=== PATIENT | male | born 1970 | race Caucasian/White ===

== ENCOUNTER 2017-04-07 22:51 | Emergency (ER) | payer OTHER ==
[~2017-04-07] VITALS: Ht 172.7 cm; Wt 70.5 kg
[~2017-04-07 22:51] MED LIST: CARV12.5 PO; CITA40TA13 PO; CLON0.1T14 PO; KLO5T PO; LISI-610 PO; METH40TA PO
[2017-04-07 23:00] VITALS: BP 129/85; PULSE 108; RESP 20; O2SAT 94
--- NOTE | 2017-04-07 23:47 | ED.REPORT ---
HPI-General Illness Date of Service Apr 07, 2017 ED Provider: Jeff Cuello MD A 47 year old male with a history of uncontrolled hypertension, COPD, alcoholism (in recovery) and IV drug abuse (in recovery) presents to the ED with SOB that began 5 days ago. Patient also reports experiencing recent right- sided chest pain, a productive cough with green sputum, and a subjective fever. He is currently expressing concern for pneumonia. His pain and discomfort have been persistent since onset and became progressively worse last night. His current symptoms feel similar to his previous episodes of pneumonia. The pain in his chest is solely associated with his cough and dyspnea. He denies any dysuria, hematuria, diarrhea, constipation, nausea, vomiting, visual changes, rash, neck stiffness or abdominal pain. Nursing Notes Stated Complaint: SHORT OF BREATH Chief Complaint: Respiratory Complaints Nursing Notes Reviewed: Yes Allergies: Coded Allergies: droperidol (Verified Allergy, Severe, 12/16/14) Scheduled Carvedilol (Coreg) 12.5 Mg Tablet 12.5 MG PO BID Citalopram (Citalopram) 40 Mg Tablet 40 MG PO DAILY Clonidine (Catapres) 0.1 Mg Tablet 0.1 MG PO HS Lisinopril (Zestril) 10 Mg Tablet 10 MG PO Q24H Methadone HCl (Methadose) 40 Mg Tablet.issac 74 MG PO DAILY at 5am Scheduled PRN Clonazepam (Clonazepam) 0.5 Mg Tab 0.5 MG PO BID PRN PRN For Anxiety General Time Seen by MD: 23:10 Chief Complaint Other (SOB) Hx Obtained From: Patient Arrived By: Walk-in Sudden in Onset?: No Onset Occurred: 5 days ago Symptom Duration: Since onset Location: : Chest Quality: Painful Radiation: : Does not radiate Severity: Current: Mild Severity: Maximum: Moderate Associated with: Reports: Chest pain, Congestion, Cough Pertinent Negative: Pt denies other symptoms Recent Healthcare: No recent doctor visit, No recent hospitalization Similar Sx Previous: Yes Past Medical History Past Medical History Notes: PCP: Dr. Thacker Past Medical History 1. Depression. 2. PTSD. 3. Bipolar disorder. 4. Social anxiety. 5. IV drug abuse with methamphetamine being treated with on chronic methadone through the methadone clinic 6. Bronchitis 7. Sleep apnea 8. Alcohol dependence 9. Seizure disorder -- per pt Reports: COPD, Hypertension Past Surgical History Reports: Appendectomy Family History father of MD at 41 Smoking History Current Every Day Smoker Social History Alcohol Use: In recovery Drug Use: In recovery Other Social History: Local resident Ambulatory Status Independent Review of Systems Full Review of Systems Constitutional: Reports: Fever (subjective fever) Eyes: Denies: Blurred bilateral Ears / Nose / Throat: Reports: Nasal congestion Respiratory: Reports: Prod cough, green, Shortness of breath Cardiovascular: Reports: Chest pain (right sided) GI: Denies: Abdominal pain, Constipation, Diarrhea, Nausea, Vomiting Male: Denies Dysuria Musculoskeletal: Denies: Neck pain Skin: Denies Rash Neurologic: Denies: Vision change Complete sys rev & neg: except as marked. Physical Exam Nursing note and vitals reviewed. Constitutional: Well-developed, well-nourished. Not diaphoretic. Head: Normocephalic and atraumatic. Mouth/Throat: Oropharynx is clear and moist. No oropharyngeal exudate. Eyes: EOM are normal. Pupils are equal, round, and reactive to light. Neck: Supple, no tracheal deviation. Cardiovascular: Mildly tachycardic, regular rhythm. Equal and intact distal pulses throughout. Pulmonary/Chest: Coarse rhonchi at the right base. No respiratory distress. Abdominal: Soft. No distension. There is no tenderness, rebound, or guarding. Musculoskeletal: Range of motion grossly intact, moving all extremities. Neurological: AOx3. Grossly nonfocal exam. Strength and sensation intact and equal to bilateral upper and lower extremities. Skin: Warm and dry, no rashes or pallor appreciated. Psychiatric: Appropriate mood and affect. Behavior appears normal. Vital Signs Vital Signs Date Time Temp Pulse Resp B/P Pulse Ox O2 Delivery O2 Flow Rate FiO2 04/08/17 00:18 37.0 116 20 112/79 94 Room Air 04/07/17 23:00 37.0 108 20 129/85 94 Room Air Initial VS: Reviewed Interpretation & Diagnostics X-Ray Chest Interpretation Chest Xray Interpretation: Chest X-ray Consolidation at right lower lobe consistent with pneumonia. Interpretation / Wet Read by: Wet read ED physician Re-Eval/Medical Decision Med Decision/Clinical Course In summary, 47-year-old male with a complex past medical history including COPD , recurrent pneumonia, IV drug abuse presenting to the ED for evaluation of right-sided chest pain and cough with associated shortness of breath that he describes as similar to previous episodes of pneumonia. Differential also includes PE, ACS, pneumothorax, COPD exacerbation, etc. Upon my evaluation of the patient, he is mildly tachycardic, however afebrile and nontoxic appearing. Chest x-ray demonstrates a right lower lobe consolidation consistent with pneumonia. He has not been hospitalized recently, however given his history, he is at higher risk for complications. I discussed that while I agree that his pneumonia is likely responsible for his symptoms, his tachycardia, complex past medical history, and other alternative diagnoses including those listed above require further evaluation here in the emergency department, including an EKG and blood work. The patient adamantly refuses this. I informed him that we could be missing something more serious, and his pneumonia may also progress and become more serious given his comorbidities, but he insists that he is aware of this risk and would still like to be discharged home with antibiotics. I am also concerned given his family history of cardiac disease. Upon reassessment, patient is still mildly tachycardic, though appears anxious and wants to leave. He is refusing any further care at this time. Given this, plan discharge home with very careful return precautions, close PCP follow-up in the next several days. I instructed him to return to the ED immediately if he changes his mind we would be happy to evaluate him further. Patient is agreeable to the plan as stated, no further questions. Time of Eval: 23:53 Patient Status: Condition improved Re-Evaluation/Progress Note: Patient is rechecked. He is informed of his chest X-ray results. I offered a standard work-up including lab work and EKG. The patient declined at this time. He is given strict return precautions and agrees to return if symptoms worsen. Counseled Regarding: Diagnosis, Need for follow-up, When/why to return to ED Discharge & Departure Primary Impression: Pneumonia Pneumonia type: due to unspecified organism Laterality: right Lung location : lower lobe of lung Qualified Code: J18.1 - Lobar pneumonia, unspecified organism Disposition: Home Discharge Condition Condition: Improved Patient Instructions: Community Acquired Pneumonia (ED) Additional Instructions: Thank you for trusting us with your care this evening. Your emergency department evaluation today shows that you have a pneumonia on your chest x-ray. As we discussed, I would recommend performing blood work, and EKG, and further evaluation here in the emergency department to ensure that this is not something that requires hospitalization. You stated that you do not want us to do this at this time despite knowing the risks of doing so, including getting worse and potentially becoming septic and/or dying. I recommend that you schedule a follow up appointment with your primary care physician in the next 2-3 days for a recheck. Take the full course of antibiotics as directed. Please return to the emergency department for further work-up if you change your mind or if you experience any new or worsening symptoms including any chest pain, difficulty breathing, fever, chills, weakness, or any other symptoms of concern to you. Referrals: Elaina Thacker MD (PCP) 2-3 days Scribe Attestation Portions of this note were transcribed by Jeb Johnson. I, Dr. Cuello personally performed the history, physical exam and medical decision-making; I reviewed and confirmed the accuracy of the information in the transcribed note. Signed by Jennifer Saez, 04/07/17. copies to: Elaina Thacker MD, William B MD Apr 07, 2017 23:47 JEB JOHNSON Apr 07, 2017 23:54
[2017-04-07] MEDS ORDERED: _Azithromycin 250 mg Tablet PO SCH (23:50)
[2017-04-07] MEDS ORDERED: _Amoxicillin-Clavulanate 875-125 mg Tablet PO SCH (23:50)
[2017-04-08 00:18] VITALS: BP 112/79; PULSE 116; RESP 20; O2SAT 94
--- NOTE | 2017-04-08 09:54 | DRSVH ---
PROCEDURE: X-RAY CHEST, TWO VIEWS ([id number]) INDICATIONS: dyspnea, eval pneumonia TECHNIQUE: 2 views of the chest were acquired. COMPARISON: [facility], CR, XR LUMBAR SPINE 2 OR 3VW, 05/09/2016, 13:37. [facility], CR, CHEST 1VW (PORTABLE), 12/20/2014, 5:10. [facility], CR, CHEST 1VW (PORTABL E), 12/19/2014, 18:41. FINDINGS: Surgical changes and devices: None. Lungs and pleura: No pleural effusions or pneumothorax. Lungs are abnormal with right lower lobe pn eumonia and slight subpulmonic right effusion. Mediastinum: Mediastinal contours are normal except for a small to moderate-sized hilar hernia behin d the heart. Heart size is normal. Bones and chest wall: No acute suspicious bony abnormalities seen but there is a thoracolumbar junct ion area of compression fracture previously documented at L1. Soft tissues appear unremarkable. IMPRESSION: Moderate wedge compression fracture, small to moderate hiatal hernia behind heart. Defin ite right lung base moderate pneumonia with a scant subpulmonic right effusion immediately adjacent. Dictated by: Omer Heath M.D. on 04/08/2017 at 9:50 Approved by: Omer Heath M.D. on 04/08/2017 at 9:52
== END 2017-04-08 00:13 | disposition home or self-care (01) ==
LOC: SED 22:51
DX: J18.1 Lobar pneumonia, unspecified organism (principal); R50.9 Fever, unspecified; I10 Essential (primary) hypertension; J44.9 Chronic obstructive pulmonary disease, unspecified; F31.9 Bipolar disorder, unspecified; F41.8 Other specified anxiety disorders; F10.20 Alcohol dependence, uncomplicated; F15.10 Other stimulant abuse, uncomplicated; F17.200 Nicotine dependence, unspecified, uncomplicated; Z90.89 Acquired absence of other organs; Z88.8 Allergy status to other drugs, medicaments and biological substances